=== PATIENT | male | born 1965 | race Caucasian/White ===

== ENCOUNTER 2018-11-16 21:26 | Observation (INO) ==
--- OUTSIDE RECORDS SUMMARY | 2018-11-16 21:28 | External Medical Summary | Continuity of Care Document ---
:1965 Author Name Renetta Jose, Provider Address Unavailable Unavailable , Care Team Providers Name Role Phone Dev Smyth [email or web address] Maddie Gross PA-C Unavailable [email or web address] Nacho Terrazas [email or web address] PERCY RAMOS Unavailable Unavailable Unavailable Unavailable Unavailable Problems Dermatitis, seborrheic (690.10) (L21.9) Seborrheic keratosis (702.19) (L82.1) Dermatofibroma (216.9) (D23.9) Multiple benign nevi (216.9) (D22.9) Seborrheic dermatitis (690.10) (L21.9) Rosacea (695.3) (L71.9) Peyronie's disease (607.85) (N48.6) Allergies and Adverse Reactions No Known Drug Allergies (Allergy) Medications Desonide 0.05 % External Ointment; APPLY SPARINGLY TO AFFECTED AREA(S) TWICE DAILY Rebeca Smyth Start: 14-May-2017 Quantity: 1 15 GM Tube Refills: 2 Triamcinolone Acetonide 0.025 % External Ointment; APPLY SPARINGLY TO AFFECTED AREA(S) TWICE DAILY Rebeca Smyth Start: 01-Jul-2014 Quantity: 1 80 GM Tube Refills: 0 Omeprazole 20 MG Oral Capsule Delayed Release; TAKE 1 CAPSUL E DAILY. Start: 21-Dec-2011 Refills: 0 Singulair 10 MG Oral Tablet Refills: 0 Lisinopril 10 MG Oral Tablet Refills: 0 SulfaCleanse 8/4 8-4 % External Suspension; APPLY TO F JARED ONCE DAILY JOVANA Gross Start: 25-Jun-2018 Quantity: 1 473 ML Bottle Refills: 2 Azelaic Acid 15 % External Gel; APPLY SP ARINGLY AND MASSAGE IN WELL TO AFFECTED AREA(S) TWICE DAILY. Rebeca Terrazas Start: 14-May-2017 Quantity: 1 50 GM Tube Refills: 0 metroNIDAZOLE 0.75 % External Cream; ANANYA LY AND GENTLY MASSAGE INTO AFFECTED AREA(S) TWICE DAILY. Rebeca Terrazas Start: 01-Jul-2014 Quantity: 1 45 GM Tube Refills: 3 metroNIDAZOLE 0.75 % External Cream; ANANYA LY AND GENTLY MASSAGE INTO AFFECTED AREA(S) TWICE DAILY. Rebeca Smyth Start: 14-May-2016 Quantity: 45 Refills: 2 Sulfacetamide Sodium-Sulfur 9-4.5 % Exte rnal Liquid; Wash face 1-2 times daily as directed. Rebeca Terrazas Start: 23-Jun-2018 Quantity: 1 454 GM Bottle Refills: 3 MetroCream 0.75 % External Cream Start: 21-Dec-2011 Refills: 0 Procedures History of Oral Surgery Tooth Extraction Status: Completed History of Hernia Repair Status: Complet ed History of Primary Repair Of Knee Ligament Cruciate Anterior Status: Completed Immunizations Immunizations not documented Family History Unknown Family Member Family history of Diabetes Mellitus (V18.0) Status: Active Comments: Family History Family history of Heart Disease (V17.49) Status: Active Comments: Family History Social History - Smoking Status Never smoker Plan of Treatment Planned Encounters Appointment; Nacho Terrazas M.D. Start: 23-Sep-2019 16:00 R equest Planned Observations Planned Goals not documented Results No Known Results Results not documented Encounters Appointment; Nacho Terrazas M.D. 22-Sep-2018 9:30 Encounter Diagnosis: Problem not documented Appointment; Nacho Terrazas M.D. 23-Jun-2018 9:30 Encounter Diagnosis: Problem not documented Appointment; Maddie Gross PA-C 15-Aug-2017 11:00 Encounter Diagnosis: Problem not documented Appointment; Dev Smyth M.D. 14-May-2017 16:20 Encounter Diagnosis: Problem not documented Appointment; Nacho Terrazas M.D. 23-Sep-2019 16:00 Encounter Diagnosis: Problem not documented
[2018-11-16] MEDS ORDERED: LORazepam 1 MG/2 ML VIAL IV STA (21:42)
[2018-11-16 21:48] LABS: Basophils # (auto) 0.03 K/uL (0-0.2); Basophils % (auto) 0.3 %; Eosinophils # (auto) 0.15 K/uL (0-0.5); Eosinophils % (auto) 1.7 %; Hematocrit (blood only) 46.1 % (42-52); Hemoglobin 16.8 g/dL (14.0-18.0); Immature Granulocytes # (auto) 0.03 K/uL (0.00-0.02); Immature Granulocytes % (auto) 0.3 %; Lymphocytes % (auto) 15.8 %; Mean Corpuscular Hgb Conc 36.4 g/dL (32-36); Mean Corpuscular Volume 89.9 fL (80-100); Monocytes # (auto) 0.58 K/uL (0.11-0.59); Monocytes % (auto) 6.5 %; Neutrophils # (auto) 6.69 K/uL (1.4-6.5); Neutrophils % (auto) 75.4 %; Platelet Count 291 K/uL (130-400); RDW Coefficient of Variation 11.9 % (11.5-14.5); RDW Standard Deviation 39.1 fL (36.4-46.3); Red Blood Count 5.13 M/uL (4.7-6.1); White Blood Count 8.88 K/uL (4.8-10.8)
--- NOTE | 2018-11-16 21:59 | XRay Report ---
XR chest 1V portable CLINICAL HISTORY: Atypical chest pain COMPARISON STUDY: No previous studies for comparison. FINDINGS: The cardiac and mediastinal contours are normal. There is no evidence of focal pulmonary co nsolidation. There is no evidence of failure. No pleural effusions are visualized.[ IMPRESSION: No active disease in the chest. Electronically signed by: Karan Haddad M.D. 11/16/2018 9:57 PM
[2018-11-16 22:05] LABS: Alanine Aminotransferase 46 U/L (12-78); Albumin Level 4.1 gm/dl (3.4-5.0); Aspartate Aminotransferase 33 U/L (15-37); BUN Creatinine Ratio 12.7 (10-20); Blood Urea Nitrogen 13 mg/dl (7-18); Calcium 9.5 mg/dl (8.5-10.1); Carbon Dioxide 28 mmol/L (21-32); Chloride 102 mmol/L (98-107); Est GFR (African American) 100.1; Est GFR (Non-African American) 86.3; Glucose 125 mg/dl (70-99); Potassium 3.6 mmol/L (3.5-5.1); Sodium 136 mmol/L (136-145)
[2018-11-16 22:10] LABS: Albumin Globulin Ratio 1.1 (0.9-2); Alkaline Phosphatase 87 U/L (45-117); Bilirubin,Total 1.1 mg/dl (0.2-1); Globulin 3.8 gm/dl (2.5-4.0); Total Protein 7.9 gm/dl (6.4-8.2); Troponin I < 0.015 ng/ml (0-0.045)
--- NOTE | 2018-11-16 22:30 | Emergency Department Note ---
History of Present Illness General Chief complaint: Cardiac Assessment Stated complaint: CHEST DISCOMFORT,HEARTBURN,ANXIETY.WEAKNESS History of Present Illness Maximum Pain Intensity: 2 This 52-year-old presents to the ER complaining of chest pain Location: Chest Quality: Uncomfortable Severity: Moderate Duration: Today Timing: Has been intermittent throughout the day Context: Patient was concerned and came in Modifying factors: better with nothing; worse with nothing Patient states he did not feel right today when he got up. He had a lack of appetite and felt fatigued. Patient states he had a few alcoholic drinks last night but nothing more than normal. He has a family history of heart disease. He has high blood pressure. No diabetes cholesterol or tobacco abuse. No recent stress test. Patient states the symptoms last for a few minutes and then resolve on their own. Nothing makes it better or worse. Home Medications Home Medications Medication Instructions Recorded Confirmed Type albuterol sulfate [ProAir HFA] 2 puff INHALATION QID PRN 11/16/18 11/16/18 History azelaic acid [Finacea] 1 applic TOPICAL Q OTHER DAY 11/16/18 11/16/18 History clindamycin phosphate 1 applic TOPICAL DAILY PRN 11/16/18 11/16/18 History desonide 1 applic TOPICAL DAILY 11/16/18 11/16/18 History lisinopril 10 mg PO DAILY 11/16/18 11/16/18 History metronidazole [MetroCream] 1 applic TOPICAL Q OTHER DAY 11/16/18 11/16/18 History montelukast [Singulair] 10 mg PO DAILY 11/16/18 11/16/18 History omeprazole 20 mg PO DAILY 11/16/18 11/16/18 History triamcinolone acetonide 1 applic TOPICAL DIRECTED PRN 11/16/18 11/16/18 History Allergies Allergy/AdvReac Type Severity Reaction Status Date / Time pollen extracts Allergy Intermediate ITCHY Verified 11/16/18 21:58 EYES, SNEEZING, CONGESTION Past Med/Surg History Medical History GERD (gastroesophageal reflux disease) High blood pressure Social History Preferred Language: Albanian Feels Safe at Home: Yes Smoking Status: Never smoker Review of Systems All systems reviewed & are unremarkable except as noted in HPI & below Physical Exam Vital Signs Vital Signs - 24 hr 11/16/18 21:28 11/16/18 21:45 11/16/18 22:01 Temperature 36.8 C Temperature Source Oral Sepsis Recent Fever Within 48 Hours No Sepsis Action Taken by Nursing No Action Required Pulse Rate 104 H Pulse Rate [Finger] 97 H Pulse Rhythm Regular Pulse Strength Normal Respiratory Rate 20 16 Respiratory Effort / Characteristics Non-Labored Spontaneous Respiratory Depth Normal Blood Pressure 173/119 H Blood Pressure [Right Arm] 139/103 H Blood Pressure Mean 137 Blood Pressure Mean [Right Arm] 115 Blood Pressure Position Sitting Pulse Oximetry 98 98 96 Oxygen Delivery Method Room Air Room Air Room Air VITALS: Vitals are noted on the nurse's note and reviewed by myself. Vital signs hypertensive. GENERAL: Anxious appearing male, in no acute distress, nondiaphoretic, well- developed well-nourished. SKIN: The skin was without rashes, erythema, edema, or bruising. There is no tenting of the skin. Capillary reflex less than 2 seconds. HEAD: Normocephalic atraumatic. EARS: External auditory canals clear EYES: Pupils equal round and reactive to light and accommodation. Conjunctivae without injection, sclerae without icterus. Extraocular movements intact. NOSE: Patent, turbinates without inflammation or discharge. MOUTH: Mucous membranes moist. Pharynx without erythema or exudate. Uvula midline. Airway patent. Tongue does not deviate. NECK: Supple without nuchal rigidity. No lymphadenopathy. No thyromegaly. Cervical spine is nontender. No JVD. HEART: Regular rate and rhythm; chest nontender to palpation LUNGS: Clear to auscultation bilaterally without wheezes, rales or rhonchi. No retractions or accessory muscle use. ABDOMEN: Positive bowel sounds x 4. Normal tympanic percussion. Soft, nontender, without masses or organomegaly. Vidal sign negative. No guarding or rebound tenderness. No CVA tenderness MUSCULOSKELETAL: No muscle atrophy, erythema, or edema noted. NEURO: Patient was alert and oriented to person place and time. Normal sensation to light and sharp touch. No focal neurological deficits. Course Administered Medications Discontinued Medications Lorazepam (Ativan) 1 mg in 2 mls @ 2 mls/min IV NOW STA Stop: 11/16/18 21:43 Last Admin: 11/16/18 21:57 Dose: 2 mls/min Documented by: [id number] Medical Decision Making Medical Records Attestation: I reviewed the patient's medical records. Home Medications Current Medication List: was personally reviewed by me Laboratory Data Attestation: I reviewed the patient's lab results. Result diagrams: 11/16/18 21:36 11/16/18 21:36 Lab Results 11/16/18 11/16/18 11/16/18 Range/Units 21:36 21:36 21:42 WBC 8.88 (4.8-10.8) K/uL RBC 5.13 (4.7-6.1) M/uL Hgb 16.8 (14.0-18.0) g/dL Hct 46.1 (42-52) % MCV 89.9 (80-100) fL MCH 32.7 (25-34) pg MCHC 36.4 H (32-36) g/dL RDW Std Deviation 39.1 (36.4-46.3) fL RDW Coeff of Len 11.9 (11.5-14.5) % Plt Count 291 (130-400) K/uL MPV 9.0 (7.4-10.4) fL Immature Gran % (Auto) 0.3 % Neut % (Auto) 75.4 % Lymph % (Auto) 15.8 % [place]linger % (Auto) 6.5 % Eos % (Auto) 1.7 % Baso % (Auto) 0.3 % Immature Gran # (Auto) 0.03 H (0.00-0.02) K/uL Neut # (Auto) 6.69 H (1.4-6.5) K/uL Lymph # (Auto) 1.40 (1.2-3.4) K/uL [place]linger # (Auto) 0.58 (0.11-0.59) K/uL Eos # (Auto) 0.15 (0-0.5) K/uL Baso # (Auto) 0.03 (0-0.2) K/uL POC D-Dimer 401 (0-450) ng/mlFEU Sodium 136 (136-145) mmol/L Potassium 3.6 (3.5-5.1) mmol/L Chloride 102 (98-107) mmol/L Carbon Dioxide 28 (21-32) mmol/L Anion Gap 7.0 (3-11) BUN 13 (7-18) mg/dl Creatinine 1.01 (0.6-1.4) mg/dl Est Cr Clr Drug Dosing 96.0 ml/min Est GFR ( Amer) 100.1 Est GFR (Non-Af Amer) 86.3 BUN/Creatinine Ratio 12.7 (10-20) Glucose 125 H (70-99) mg/dl Calcium 9.5 (8.5-10.1) mg/dl Total Bilirubin 1.1 H (0.2-1) mg/dl AST 33 (15-37) U/L ALT 46 (12-78) U/L Alkaline Phosphatase 87 (45-117) U/L POC Troponin I < 0.03 (0-0.045) ng/ml Troponin I < 0.015 (0-0.045) ng/ml Total Protein 7.9 (6.4-8.2) gm/dl Albumin 4.1 (3.4-5.0) gm/dl Globulin 3.8 (2.5-4.0) gm/dl Albumin/Globulin Ratio 1.1 (0.9-2) Lipase 76 (73-393) U/L Imaging Data Attestation: I personally reviewed and interpreted this imaging study as follow s: MDM Narrative Prior records/ancillary studies reviewed. Triage Nursing notes reviewed. The patient's history was concerning for chest pain. Differential diagnosis: Etiologies such as cardiac ischemia, aortic dissection, pulmonary embolism, pneumonia, pneumothorax, musculoskeletal, infections, pericarditis, myocarditis, esophageal rupture, gastrointestinal, as well as others were entertained. Physical examination: As above. ER treatment provided: Ativan On reassessment the patient felt better. Diagnostic interpretation by me: The electrocardiogram was normal sinus, poor baseline, ST depression in the lateral leads, normal axis. Impression normal sinus rhythm with ST depressions in lateral leads interpreted by myself. Repeat EKG is unchanged. the new ST depressions are new, when compared to prior EKG from 2012. I think arrhythmia is unlikely. EKG shows normal sinus rhythm with no interval abnormalities such as QT prolongation or WPW. There are no findings to suggest Brugada syndrome. Cardiac monitoring in the emergency department reveals no tachycardic or bradycardic dysrhythmia. Hypertrophic cardiomyopathy was c onsidered but there are no clear historical elements pointing toward this. EKG is not suggestive. The QRS voltage is not extremely large and there are no suggestive Q waves. The labs revealed negative troponin. Negative d-dimer Imaging studies: Chest x-ray with no acute consolidation, pneumothorax or free air per my interpretation HEART SCORE: Hx: high/mod/low suspicion: 1 ECG: ST depression/nonspecific changes/normal: 1 Age: Greater than 65/45-64/less than 45: 1 Risk factors: (Hypertension, hyperlipidemia, diabetes, coronary disease, tobacco use, cocaine use): 1 Troponin: Greater than 2 times normal limits/1-2 times normal limits/normal: 0 Total: 4 Consultation: A consultation was placed with the hospitalist, Dr Best. The case was discussed and diagnostics were reviewed. The patient was evaluated in the ER for further treatment. Exam and history seem consistent with chest pain with an abnormal EKG. First troponin was negative. Heart score is 4. Medicine was consulted. Patient is agreeable to treatment plan of admission. He is currently asymptomatic. Repeat EKG is unchanged. By the evaluation outlined above emergent etiologies such as aortic dissection, pulmonary embolism, pneumonia, pneumothorax, infections, pericarditis, myocarditis, gastrointestinal, as well as others were deemed relatively unlikely. The pt informed about the findings as listed above. All questions were answered and pleased with the treatment. Case reviewed with my attending The chart was completed utilizing [employer] Speech voice recognition software. Grammatical errors, random word insertions, pronoun errors, and incomplete sentences are an occassional consequence of this system due to software limitations, ambient noise, and hardware issues. Any formal questions or concerns about the content, text, or information contained within the body of this dictation should be directly addressed to the physician medical services assistant for clarification. Impression & Plan Atypical chest pain Discharge Plan Visit Data Chief Complaint: Cardiac Assessment Stated Complaint: CHEST DISCOMFORT,HEARTBURN,ANXIETY.WEAKNESS ED Provider: Bret Pop ED Midlevel Provider: Mecca Celis Discharge Problem: Atypical chest pain Patient Disposition: Being Evaluated by Hospitalist Condition: Good Forms Stand Alone Forms: My [facility] [place] [employer] Prescriptions Prescriptions: No Action desonide 0.05 % Cream 1 applic TOPICAL DAILY RF: 0 triamcinolone acetonide 0.025 % Cream 1 applic TOPICAL DIRECTED PRN (Reason: Skin Irritation) RF: 0 lisinopril 10 mg Tablet 10 mg PO DAILY RF: 0 metronidazole [MetroCream] 0.75 % Cream 1 applic TOPICAL Q OTHER DAY RF: 0 omeprazole 20 mg Capsule,Delayed Release(Dr/Ec) 20 mg PO DAILY RF: 0 montelukast [Singulair] 10 mg Tablet 10 mg PO DAILY RF: 0 albuterol sulfate [ProAir HFA] 90 mcg/actuation Hfa Aerosol Inhaler 2 puff INHALATION QID PRN (Reason: Shortness Of Breath Or Wheezing) RF: 0 clindamycin phosphate 1 % Solution 1 applic TOPICAL DAILY PRN (Reason: Skin Irritation) RF: 0 azelaic acid [Finacea] 15 % Gel 1 applic TOPICAL Q OTHER DAY RF: 0 Referrals Referrals: Mayo Engle MD [Primary Care Provider] -
[2018-11-16 22:58] LABS: Magnesium 2.3 mg/dl (1.8-2.4)
[2018-11-16 22:59] LABS: Partial Thromboplastin Ratio 1.1; Partial Thromboplastin Time 28.5 Seconds (21.0-31.0)
[2018-11-16] MEDS ORDERED: PANTOprazole 40 MG TAB PO STA (22:59)
[2018-11-16] MEDS ORDERED: MULTI-VITAMIN INFUSION 10 ML, THIAMINE HCL 100 MG, FOLIC ACID 1 MG in SODIUM CHLORIDE 0... IV STA (23:00)
--- NOTE | 2018-11-16 23:01 | History & Physical Report ---
Date of Service November 16, 2018 Assessment & Plan (1) Atypical chest pain: Multifactorial : Uncontrolled GERD Chronic cervical radiculopathy Uncontrolled BP, anxiety Rule out ACS asthma, stable Hyperglycemia rule out DM daily alcohol intake, patient admits that he might be drinking more than he should. OBS PCU Exercise stress echo in a.m. if morning troponin within normal limits Aspirin for CAD prevention until ACS ruled out Double home PPI dose Guest Services Assistant patient about irritative effects of alcohol and gastric mucosa. Check hemoglobin A1c, lipid profile Anxiolytic as needed DT precautions DVT prophylaxis. Lovenox subcu Full code History of Present Illness Chief Complaint: Chest pain Primary Care Provider: Mayo Engle MD History obtained from patient and records. Medical history significant for hypertension, GERD, bronchial asthma, daily alcohol intake. Patient woke up feeling off this morning. Left-sided achy chest discomfort as if somebody is pushing his chest with radiation to the left arm with some shortness of breath. Usual neck pain complaints shooting to the left arm from time to time. Reflux somewhat uncontrolled today. Usual stress at home. SBP at home 140s, which is higher than usual. Denies recent NSAID intake, dietary indiscretion. Patient currently comfortable at the ER. 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 Allergies Allergy/AdvReac Type Severity Reaction Status Date / Time pollen extracts Allergy Intermediate ITCHY Verified 11/16/18 21:58 EYES, SNEEZING, CONGESTION Home Medications Home Medications Medication Instructions Recorded Confirmed Type albuterol sulfate [ProAir HFA] 2 puff INHALATION QID PRN 11/16/18 11/16/18 History azelaic acid [Finacea] 1 applic TOPICAL Q OTHER DAY 11/16/18 11/16/18 History clindamycin phosphate 1 applic TOPICAL DAILY PRN 11/16/18 11/16/18 History desonide 1 applic TOPICAL DAILY 11/16/18 11/16/18 History lisinopril 10 mg PO DAILY 11/16/18 11/16/18 History metronidazole [MetroCream] 1 applic TOPICAL Q OTHER DAY 11/16/18 11/16/18 History montelukast [Singulair] 10 mg PO DAILY 11/16/18 11/16/18 History omeprazole 20 mg PO DAILY 11/16/18 11/16/18 History triamcinolone acetonide 1 applic TOPICAL DIRECTED PRN 11/16/18 11/16/18 History Past Med/Surg History Medical History GERD (gastroesophageal reflux disease) High blood pressure Social History Preferred Language: Cuban Communication Ability: Effective Beliefs That Will Affect Care: None Current Living Situation: Spouse Feels Safe at Home: Yes Safety Concerns: Feels Safe At This Time Smoking Status: Never smoker Hx Alcohol Use: Yes Alcohol type: hard liquor Hx Substance Use: Yes substance use type: former substance user and marijuana Review of Systems Review of Systems: As per HPI, all 10 systems reviewed, all other ROS negative Physical Exam Physical Exam: GENERAL: Comfortable, slightly anxious, no respiratory distress SKIN: Normal color, warm HEENT: Bespectacled, [place] palpebral conjunctivae, no ptosis, dry buccal mucosa NECK : Some limitation in range of motion , chronic tenderness CHEST : Decreased breath sounds , no tenderness HEART : RRR, no obvious murmurs ABDOMEN: Some distention, nontender EXTREMITIES : No LE swelling/tenderness, no other conspicuous deformities noted NEUROLOGIC : Coherent, no facial asymmetry, no other gross focality Results & Data Vital Signs (Past 12 Hours) Vital Signs Temp Pulse Pulse Resp BP BP Pulse Ox 11/16/18 22:01 97 H 16 139/103 H 96 11/16/18 21:45 98 11/16/18 21:28 36.8 C 104 H 20 173/119 H 98 Laboratory Results Laboratory Results WBC 8.88 K/uL (4.8-10.8) 11/16/18 21:36 RBC 5.13 M/uL (4.7-6.1) 11/16/18 21:36 Hgb 16.8 g/dL (14.0-18.0) 11/16/18 21:36 Hct 46.1 % (42-52) 11/16/18 21:36 MCV 89.9 fL (80-100) 11/16/18 21:36 MCH 32.7 pg (25-34) 11/16/18 21:36 MCHC 36.4 g/dL (32-36) H 11/16/18 21:36 RDW Std Deviation 39.1 fL (36.4-46.3) 11/16/18 21:36 RDW Coeff of Len 11.9 % (11.5-14.5) 11/16/18 21:36 Plt Count 291 K/uL (130-400) 11/16/18 21:36 MPV 9.0 fL (7.4-10.4) 11/16/18 21:36 Immature Gran % (Auto) 0.3 % 11/16/18 21:36 Neut % (Auto) 75.4 % 11/16/18 21:36 Lymph % (Auto) 15.8 % 11/16/18 21:36 [place] % (Auto) 6.5 % 11/16/18 21:36 Eos % (Auto) 1.7 % 11/16/18 21:36 Baso % (Auto) 0.3 % 11/16/18 21:36 Immature Gran # (Auto) 0.03 K/uL (0.00-0.02) H 11/16/18 21:36 Neut # (Auto) 6.69 K/uL (1.4-6.5) H 11/16/18 21:36 Lymph # (Auto) 1.40 K/uL (1.2-3.4) 11/16/18 21:36 [place] # (Auto) 0.58 K/uL (0.11-0.59) 11/16/18 21:36 Eos # (Auto) 0.15 K/uL (0-0.5) 11/16/18 21:36 Baso # (Auto) 0.03 K/uL (0-0.2) 11/16/18 21:36 APTT 28.5 Seconds (21.0-31.0) 11/16/18 21:36 PTT Ratio 1.1 11/16/18 21:36 POC D-Dimer 401 ng/mlFEU (0-450) 11/16/18 21:42 Sodium 136 mmol/L (136-145) 11/16/18 21:36 Potassium 3.6 mmol/L (3.5-5.1) 11/16/18 21:36 Chloride 102 mmol/L (98-107) 11/16/18 21:36 Carbon Dioxide 28 mmol/L (21-32) 11/16/18 21:36 Anion Gap 7.0 (3-11) 11/16/18 21:36 BUN 13 mg/dl (7-18) 11/16/18 21:36 Creatinine 1.01 mg/dl (0.6-1.4) 11/16/18 21:36 Est Cr Clr Drug Dosing 96.0 ml/min 11/16/18 21:36 Est GFR ( Amer) 100.1 11/16/18 21:36 Est GFR (Non-Af Amer) 86.3 11/16/18 21:36 BUN/Creatinine Ratio 12.7 (10-20) 11/16/18 21:36 Glucose 125 mg/dl (70-99) H 11/16/18 21:36 Calcium 9.5 mg/dl (8.5-10.1) 11/16/18 21:36 Magnesium 2.3 mg/dl (1.8-2.4) 11/16/18 21:36 Total Bilirubin 1.1 mg/dl (0.2-1) H 11/16/18 21:36 AST 33 U/L (15-37) 11/16/18 21:36 ALT 46 U/L (12-78) 11/16/18 21:36 Alkaline Phosphatase 87 U/L (45-117) 11/16/18 21:36 POC Troponin I < 0.03 ng/ml (0-0.045) 11/16/18 21:42 Troponin I < 0.015 ng/ml (0-0.045) 11/16/18 21:36 Total Protein 7.9 gm/dl (6.4-8.2) 11/16/18 21:36 Albumin 4.1 gm/dl (3.4-5.0) 11/16/18 21:36 Globulin 3.8 gm/dl (2.5-4.0) 11/16/18 21:36 Albumin/Globulin Ratio 1.1 (0.9-2) 11/16/18 21:36 Lipase 76 U/L (73-393) 11/16/18 21:36 TSH 4.250 uIu/ml (0.300-4.500) 11/16/18 21:36 Diagnostic Findings Chest x-ray showed no active disease EKG as per my interpretation : Rate 100, NSR, incomplete right bundle branch block, T wave flattening septal leads
[2018-11-17] MEDS ORDERED: NITROGLYCERIN SL 0.4 MG/TAB TAB SL PRN (00:01)
[2018-11-17] MEDS ORDERED: ACETAMINOPHEN 325 MG TAB PO PRN (00:01)
[2018-11-17] MEDS ORDERED: MoRPHine SULFATE 4 MG/ML 1 ML CARP\\VIAL IV PRN (00:01)
[2018-11-17] MEDS ORDERED: LORazepam 0.5 MG/1 ML VIAL IV PRN (00:01)
[2018-11-17] MEDS ORDERED: PROMETHAZINE HCL 12.5 MG in SODIUM CHLORIDE 0.9% 50 ML IV PRN (00:01)
[2018-11-17 03:15] LABS: Basophils # (auto) 0.02 K/uL (0-0.2); Basophils % (auto) 0.3 %; Eosinophils # (auto) 0.23 K/uL (0-0.5); Eosinophils % (auto) 3.3 %; Hematocrit (blood only) 43.2 % (42-52); Hemoglobin 15.6 g/dL (14.0-18.0); Immature Granulocytes # (auto) 0.01 K/uL (0.00-0.02); Immature Granulocytes % (auto) 0.1 %; Lymphocytes % (auto) 24.6 %; Mean Corpuscular Hgb Conc 36.1 g/dL (32-36); Mean Corpuscular Volume 90.8 fL (80-100); Mean Platelet Volume 9.2 fL (7.4-10.4); Monocytes # (auto) 0.69 K/uL (0.11-0.59); Neutrophils # (auto) 4.25 K/uL (1.4-6.5); Neutrophils % (auto) 61.7 %; Platelet Count 262 K/uL (130-400); RDW Coefficient of Variation 12.1 % (11.5-14.5); RDW Standard Deviation 40.1 fL (36.4-46.3); Red Blood Count 4.76 M/uL (4.7-6.1)
[2018-11-17 03:37] LABS: Chol HDL Ratio 4; Cholesterol 210 mg/dl (0-200); HDL Cholesterol 48 mg/dl; LDL Cholesterol Calculated 125 mg/dl; Triglycerides 185 mg/dl (0-150); Troponin I < 0.015 ng/ml (0-0.045); VLDL Cholesterol 37 mg/dl
[2018-11-17 06:24] LABS: Estimated Average Glucose 91 mg/dl; Hemoglobin A1C 4.8 % (4.5-5.6)
[2018-11-17 06:59] LABS: Prothrombin Time 10.3 Seconds (9.0-12.0)
[2018-11-17] MEDS ORDERED: ENOXAPARIN INJ 40 MG/0.4 ML SYR SQ SCH (09:00)
[2018-11-17] MEDS ORDERED: ASPIRIN 81 MG ECTAB PO SCH (09:00)
[2018-11-17] MEDS ORDERED: MONTELUKAST SODIUM 10 MG TABLET PO SCH (09:00)
[2018-11-17] MEDS ORDERED: LISINOPRIL 10 MG TAB PO SCH (09:00)
[2018-11-17] MEDS ORDERED: PANTOprazole 40 MG TAB PO SCH (09:00)
[2018-11-17] MEDS ORDERED: PERFLUTREN LIPID MICROSPHERE (DEFINITY) IV ONE (12:00)
--- NOTE | 2018-11-17 12:17 | Hospitalist Progress Note ---
Date of Service November 17, 2018 Assessment & Plan (1) Atypical chest pain: Multifactorial:GERD, Uncontrolled HTN, Anxiety R/O ACS CXR:No active disease in the chest. MELLISSA: T wave inversion in anterior leads Cardiac Enzymes X 3: Negative Stress Test: Negative for inducible ischemia Chest pain resolved Continue PPI, Pepcid Added Metoprolol for better BP control Chronic cervical radiculopathy Needs follow up as outpatient PT/OT: Not helpful per patient HTN: Continue Lisinopril Added Metoprolol Advised lifestyle changes Asthma stable No signs of exacerbation Hyperglycemia DM ruled out A1C:4.8 Alcohol use disorder Counselled to quit drinking Continue thiamine, folic acid DT precautions DVT Px: Lovenox SQ Code Status Full code Subjective Patient is seen and examined at bedside Doing better today Chest pain resolved At stress test earlier today Heartburn improved Has chronic neck pain Denies any shortness of breath, dizziness, abdominal pain, nausea Family at bedside Review of Systems Review of Systems: All systems reviewed & are unremarkable except as noted in HPI & below Physical Exam Physical Exam: Physical Exam: Vitals signs as noted above General Appearance:Moderately built and nourished, no apparent distress Head: normocephalic, Atraumatic Eyes: normal inspection, EOMI Neck: supple, Trachea midline Respiratory/Chest: Normal breath sounds, CTA Cardiovascular: S1, S2, No murmur Abdomen/GI:Soft, Non tender, Bowel sounds present Extremities/Musculoskelatal:normal inspection, no edema Neurologic/Psych:AAOX3, grossly no focal neurological deficits Skin: normal color, warm Results & Data Vital Signs (Past 12 Hours) Vital Signs Temp Pulse Resp BP Pulse Ox 11/17/18 11:41 36.9 C 91 H 16 124/86 96 11/17/18 07:19 36.7 C 78 17 122/91 97 11/17/18 04:28 36.5 C 76 18 118/81 96 Laboratory Results Short CBC 11/16/18 11/17/18 Range/Units 21:36 02:53 WBC 8.88 6.90 (4.8-10.8) K/uL Hgb 16.8 15.6 (14.0-18.0) g/dL Hct 46.1 43.2 (42-52) % Plt Count 291 262 (130-400) K/uL BMP 11/16/18 21:36 Sodium 136 Potassium 3.6 Chloride 102 Carbon Dioxide 28 BUN 13 Creatinine 1.01 Glucose 125 H Calcium 9.5 Cardiac Enzymes 11/16/18 11/17/18 Range/Units 21:36 02:53 Troponin I < 0.015 < 0.015 (0-0.045) ng/ml Liver Function 11/16/18 Range/Units 21:36 Total Bilirubin 1.1 H (0.2-1) mg/dl AST 33 (15-37) U/L ALT 46 (12-78) U/L Alkaline Phosphatase 87 (45-117) U/L Albumin 4.1 (3.4-5.0) gm/dl
--- NOTE | 2018-11-17 17:57 | Discharge Summary ---
Date of Service November 17, 2018 Admission HPI Per Admitting Provider History obtained from patient and records. Medical history significant for hypertension, GERD, bronchial asthma, daily alcohol intake. Patient woke up feeling off this morning. Left-sided achy chest discomfort as if somebody is pushing his chest with radiation to the left arm with some shortness of breath. Usual neck pain complaints shooting to the left arm from time to time. Reflux somewhat uncontrolled today. Usual stress at home. SBP at home 140s, which is higher than usual. Denies recent NSAID intake, dietary indiscretion. Patient currently comfortable at the ER. 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 Exam Per Admitting Provider GENERAL: Comfortable, slightly anxious, no respiratory distress SKIN: Normal color, warm HEENT: Bespectacled, [place] palpebral conjunctivae, no ptosis, dry buccal mucosa NECK : Some limitation in range of motion , chronic tenderness CHEST : Decreased breath sounds , no tenderness HEART : RRR, no obvious murmurs ABDOMEN: Some distention, nontender EXTREMITIES : No LE swelling/tenderness, no other conspicuous deformities noted NEUROLOGIC : Coherent, no facial asymmetry, no other gross focality Principal Diagnosis Discharge Information Discharge Diagnosis Atypical Chest Pain Discharge Goals Decrease discomfort,Improve disease control, Improve function Discharge Activity Limitations Resume your previous activity Discharge Data Allergies Allergy/AdvReac Type Severity Reaction Status Date / Time pollen extracts Allergy Intermediate ITCHY Verified 11/16/18 21:58 EYES, SNEEZING, CONGESTION Consultations 11/16/18 22:20 ED Decision to Admit Stat Procedures Performed CXR: No active disease in the chest. Stress ECHO: The stress echo is negative for inducible ischemia Moderately high workload achieved Normal resting wall motion and no stress-induced wall motion abnormality Left ventricular ejection fraction increases normally with stress. The left ventricle and systolic cavity size reduces post stress(Normal Response). The left ventricular wall motion with stress is normal. EF is equal to 55 to 60% There is mild concentric left ventricular hypertrophy There is no significant valvular disease Hospital Course (1) Atypical chest pain: Multifactorial:GERD, Uncontrolled HTN, Anxiety R/O ACS CXR:No active disease in the chest. MELLISSA: T wave inversion in anterior leads Cardiac Enzymes X 3: Negative Stress Test: Negative for inducible ischemia Chest pain resolved Continue PPI, Pepcid Added Metoprolol for better BP control Chronic cervical radiculopathy Needs follow up as outpatient PT/OT: Not helpful per patient HTN: Continue Lisinopril Added Metoprolol Advised lifestyle changes Asthma stable No signs of exacerbation Hyperglycemia DM ruled out A1C:4.8 Alcohol use disorder Counselled to quit drinking Continue thiamine, folic acid DT precautions DVT Px: Lovenox SQ Code Status Full code Total Time Total Time Spent Total Time Spent (In Minutes): 32 minutes Total Time Includes: Examination of the Patient, Discharge Planning, Medication Reconciliation, Communication With Other Providers and Other Discharge Plan Discharge Items Patient Disposition: Home - Self-Care Reason For Visit: CP Discharge Diagnosis: Atypical Chest Pain Condition: Good Discharge Goals: Decrease discomfort, Improve disease control and Improve functi on Activity: Resume your previous activity Exercise/Sports: Gradually increase as tolerated Non-emergency contact: Primary Care Provider Call non-emergency contact if: you have any medication questions, your symptoms worsen, your pain is not controlled, your pain is worsening, your pain is unusu al for you, your pain is concerning for you and you have a fever Follow-up/Referrals: Mayo Engle MD [Primary Care Provider] - Diet: Heart Healthy Addtl Provider Instructions: Follow up with your PCP on 11/19/18 at 11:05 AM Discuss with your Physician regarding further management of your blood pressure Consider following your Hat Block Maker if your heartburn continues to worsen Check you blood pressure regularly as advised Quit drinking alcohol as advised Seek immediate medical attention if your symptoms reoccur or worsen Prescriptions: New thiamine HCl (vitamin B1) [Vitamin B-1] 100 mg Tablet 100 mg PO QAM 30 Days Qty: 30 RF: 0 famotidine 20 mg Tablet 20 mg PO HS 30 Days Qty: 30 RF: 0 folic acid 1 mg Tablet 1 mg PO QAM 30 Days Qty: 30 RF: 0 metoprolol succinate 25 mg Tablet Extended Release 24 Hr 12.5 mg PO QAM 30 Days Qty: 15 RF: 0 Continued desonide 0.05 % Cream 1 applic TOPICAL DAILY RF: 0 triamcinolone acetonide 0.025 % Cream 1 applic TOPICAL DIRECTED PRN (Reason: Skin Irritation) RF: 0 lisinopril 10 mg Tablet 10 mg PO DAILY RF: 0 metronidazole [MetroCream] 0.75 % Cream 1 applic TOPICAL Q OTHER DAY RF: 0 omeprazole 20 mg Capsule,Delayed Release(Dr/Ec) 20 mg PO DAILY RF: 0 montelukast [Singulair] 10 mg Tablet 10 mg PO DAILY RF: 0 albuterol sulfate [ProAir HFA] 90 mcg/actuation Hfa Aerosol Inhaler 2 puff INHALATION QID PRN (Reason: Shortness Of Breath Or Wheezing) RF: 0 clindamycin phosphate 1 % Solution 1 applic TOPICAL DAILY PRN (Reason: Skin Irritation) RF: 0 azelaic acid [Finacea] 15 % Gel 1 applic TOPICAL Q OTHER DAY RF: 0 Stand-Alone Forms: [facility]/Other Patient Handouts: GERD, GERD Meds Discharge Orders: Discharge Order (Routine); Ordered 11/17/18 Ordered By: Burt Hurst Admission Data Admit Date/Time: 11/16/18 23:02 Attending Provider: Burt Hurst Admit Provider: Cody Best Primary Care Provider: Mayo Engle Other Providers: Cody Best Service: Telemetry Other Interventions: Discharge Summary Assessment (RN) Last Done: 11/17/18 13:33 Pending Studies at Discharge: No DC Date/Time DO NOT enter until pt leaves facility: 11/17/18 13:48
[2018-11-17] MEDS ORDERED: FAMOTIDINE 20 MG TAB PO SCH (21:00)
[2018-11-18] MEDS ORDERED: METOPROLOL SUCC 25MG EXT REL TAB PO SCH (09:00)
[2018-11-18] MEDS ORDERED: THIAMINE HCL 100 MG TAB PO SCH (09:00)
[2018-11-18] MEDS ORDERED: MULTIVITAMIN TAB PO SCH (09:00)
[2018-11-18] MEDS ORDERED: FOLIC ACID 1 MG TAB PO SCH (09:00)
== END 2018-11-17 13:48 | disposition home or self-care (01) ==
LOC: 2E 21:26 → ED 21:26 → 2E 22:34